=== PATIENT | female | born 1960 | race Caucasian/White ===

== ENCOUNTER 2020-01-31 20:00 | Emergency (ER) | payer OTHER ==
[~2020-01-31 20:00] MED LIST: IOVERSOL 320 100 ML VIAL IVP ONE
--- NOTE | 2020-01-31 20:37 | ED Physician Documentation ---
PD HPI ABD PAIN - Stated complaint Stated Complaint: ABD PX - Chief complaint Chief Complaint: Abd Pain - History obtained from History obtained from: Patient - History of Present Illness Timing - onset: Today (last 2 nights she has had mild right lower quadrant and pelvic pain. It comes and goes. Today it was much more severe early in the day. She followed up with her doctor and a pelvic exam was done. She was referred for CT but preauthorization did not come through. Pain is minimal now.) Review of Systems Ten Systems: 10 systems reviewed and negative Constitutional: denies: Fever, Chills Nose: denies: Rhinorrhea / runny nose, Congestion Throat: denies: Sore throat Cardiac: denies: Chest pain / pressure, Palpitations Respiratory: denies: Dyspnea, Cough GI: denies: Nausea, Vomiting, Diarrhea : denies: Dysuria PD PAST MEDICAL HISTORY - Allergies Allergies/Adverse Reactions: Allergies Allergy/AdvReac Type Severity Reaction Status Date / Time Phenothiazines Allergy Hallucinati Verified 01/31/20 20:10 ons PD ED PE NORMAL - Vitals Vital signs reviewed: Yes - General General: Alert and oriented X 3, No acute distress - HEENT HEENT: PERRL, EOMI - Neck Neck: Supple, no meningeal sign, No bony TTP - Cardiac Cardiac: RRR, No murmur - Respiratory Respiratory: No respiratory distress, Clear bilaterally - Abdomen Abdomen: Normal bowel sounds, Soft, Other (She is very mild diffuse right-sided abdominal tenderness, negative Correa sign, no guarding or rebound.) - Back Back: No CVA TTP, No spinal TTP - Derm Derm: Normal color, Warm and dry - Neuro Neuro: Alert and oriented X 3, Normal speech Results - Vitals Vitals: Vital Signs - 24 hr 01/31/20 20:10 Temperature 36.9 C Heart Rate 75 Respiratory 16 Rate Blood Pressure 91/51 L O2 Saturation 100 Oxygen O2 Source Room air - Labs Labs: Laboratory Tests 01/31/20 01/31/20 01/31/20 21:00 21:00 22:00 WBC 7.1 RBC 3.97 L Hgb 12.1 Hct 36.7 L MCV 92.4 MCH 30.5 MCHC 33.0 RDW 13.7 Plt Count 258 MPV 10.3 Neut # (Auto) 4.1 Lymph # (Auto) 2.2 [place] # (Auto) 0.6 Eos # (Auto) 0.2 Baso # (Auto) 0.1 Absolute Nucleated RBC 0.00 Nucleated RBC % 0.0 Sodium 135 Potassium 3.5 Chloride 102 Carbon Dioxide 25 Anion Gap 8.0 BUN 22 H Creatinine 0.9 Estimated GFR (MDRD) 64 L Glucose 116 H Calcium 9.0 Total Bilirubin 1.2 H AST 22 ALT 19 Alkaline Phosphatase 82 Total Protein 7.3 Albumin 4.3 Globulin 3.0 Albumin/Globulin Ratio 1.4 Lipase 31 Urine Color YELLOW Urine Clarity CLEAR Urine pH 6.0 Ur Specific [place] 1.015 Urine Protein NEGATIVE Urine Glucose (UA) NEGATIVE Urine Ketones NEGATIVE Urine Occult Blood NEGATIVE Urine Nitrite NEGATIVE Urine Bilirubin NEGATIVE Urine Urobilinogen 0.2 (NORMAL) Ur Leukocyte Esterase NEGATIVE Ur Microscopic Review NOT INDICATED Urine Culture Comments NOT INDICATED Urine HCG, Qual NEGATIVE PD MEDICAL DECISION MAKING - ED course ED course: 59-year-old woman presents with acute resolved abdominal pain. Minimal tenderness. CT showing only chronic and incidental findings. Nontender on reevaluation prior to discharge. Departure - Departure Disposition: 01 Home, Self Care Clinical Impression: Abdominal pain Qualifiers: Abdominal location: right lower quadrant Qualified Code(s): R10.31 - Right lower quadrant pain Condition: Good Record reviewed to determine appropriate education?: Yes Instructions: ED Abdominal Pain Unkn Cause Comments: Call your doctor to arrange a follow-up appointment, make the next available appointment. In the interim, return anytime if worse or if new symptoms develop.
[2020-01-31] MEDS ORDERED: IOVERSOL 320 100 ML VIAL IVP ONE ×2 (20:55→21:57)
[2020-01-31 21:08] LABS: BASOPHILS # (AUTO) 0.1 10^3/uL (0.0-0.1); BASOPHILS % (AUTO) 0.7 %; EOSINOPHILS # (AUTO) 0.2 10^3/uL (0.0-0.7); EOSINOPHILS % (AUTO) 3.1 %; HGB - HEMOGLOBIN 12.1 g/dL (12.0-16.0); LYMPHOCYTES # (AUTO) 2.2 10^3/uL (1.5-3.5); LYMPHOCYTES % (AUTO) 30.2 %; MEAN CORPUSCULAR HEMOGLOBIN 30.5 pg (27.0-31.0); MEAN CORPUSCULAR VOLUME 92.4 fL (81.0-99.0); MEAN PLATELET VOLUME 10.3 fL (7.9-10.8); MONOCYTES # (AUTO) 0.6 10^3/uL (0.0-1.0); MONOCYTES % (AUTO) 7.9 %; NEUTROPHILS # (AUTO) 4.1 10^3/uL (1.5-6.6); NEUTROPHILS % (AUTO) 57.8 %; PLT - PLATELET COUNT 258 10^3/uL (130-450); RED BLOOD COUNT 3.97 10^6/uL (4.20-5.40); RED CELL DISTRIBUTION WIDTH 13.7 % (12.0-15.0); WHITE BLOOD COUNT 7.1 x10^3/uL (4.8-10.8)
[2020-01-31 21:25] LABS: ALBUMIN 4.3 g/dL (3.2-5.5); ALBUMIN/GLOBULIN RATIO 1.4 (1.0-2.2); BILIRUBIN,TOTAL 1.2 mg/dL (0.2-1.0); CREATININE 0.9 mg/dL (0.4-1.0); TOTAL PROTEIN 7.3 g/dL (6.7-8.2)
[2020-01-31 22:16] LABS: BILIRUBIN,URINE NEGATIVE (NEGATIVE); GLUCOSE, URINE (UA) NEGATIVE (NEGATIVE); KETONES,URINE (UA) NEGATIVE (NEGATIVE); LEUKOCYTE ESTERASE, URINE NEGATIVE (NEGATIVE); NITRITE,URINE NEGATIVE (NEGATIVE); OCCULT BLOOD,URINE NEGATIVE (NEGATIVE); PROTEIN,URINE NEGATIVE (NEGATIVE); UROBILINOGEN,URINE 0.2 (NORMAL) E.U./dL (NORMAL)
[2020-01-31 22:19] LABS: CLARITY,URINE CLEAR (CLEAR); HCG UR QUAL NEGATIVE
--- NOTE | 2020-01-31 22:23 | CT Report ---
Reason: IV only, RLQ pain Procedure Date: 01/31/2020 Accession Number: [id number] / [id number] Procedure: CT - Abdomen/Pelvis W CPT Code: Final Report FULL RESULT: EXAM: CT ABDOMEN AND PELVIS EXAM DATE: 01/31/2020 09:59 PM. CLINICAL HISTORY: 3 day history of right lower quadrant abdominal pain COMPARISONS: None. TECHNIQUE: Routine helical CT imaging was performed through the abdomen and pelvis. IV contrast: 100 mL OPTIRAY 320. Enteric contrast: Yes. Reconstructions: Coronal and sagittal. In accordance with CT protocol optimization, one or more of the following dose reduction techniques were utilized for this exam: automated exposure control, adjustment of mA and/or KV based on patient size, or use of iterative reconstructive technique. FINDINGS: The lung bases are clear. The visible heart is normal in size. The liver and gallbladder are within normal limits. There is no biliary dilatation. A 1.1 x 1.2 cm subcapsular hypoattenuating lesion is seen at the upper pole of the spleen, which is too small to characterize, but may represent a small cyst or resolving hematoma. The pancreas and adrenal glands are within normal limits. A 2.1 x 1.9 cm hypodense lesion is seen in the lower pole of the left kidney, likely representing a cyst. An 8 mm hypodense lesion is seen in the lower pole of the right kidney, which is too small to characterize but likely represents a small cyst. The kidneys otherwise enhance symmetrically. There is no hydronephrosis. Scattered diverticula are seen in the sigmoid colon. The appendix is normal. There is no evidence of bowel obstruction, free intraperitoneal air, or ascites. No lymphadenopathy is seen. The abdominal aorta is normal in course and caliber. The bladder is normal. The uterus is within normal limits. The ovaries are not visible. There is no free pelvic fluid. There is a mild thoracolumbar dextrocurvature with compensatory lumbar levocurvature. Mild facet arthropathy and degenerative disk disease is seen in the lower lumbar spine. There are no suspicious lytic or blastic lesions. IMPRESSION: 1. No acute CT abnormalities to explain the patient's abdominal pain. 2. Sigmoid colon diverticulosis. 3. Subcapsular hypoattenuating lesion in the spleen may represent a small cyst or resolving hematoma if there is a history of trauma. RADIA
[2020-01-31 22:44] VITALS: BP 119/73
== END 2020-01-31 22:47 | disposition home or self-care (01) ==
LOC: ED 20:00
DX: R10.31 Right lower quadrant pain (principal)
CPT/HCPCS: 36415; 74177; 80053; 81003; 81025; 83690; 85025; 99283; 99284; Q9967; 81001; 87086

== ENCOUNTER 2020-02-04 16:49 | Outpatient (CLI) | payer OTHER ==
--- NOTE | 2020-02-06 10:09 | Ultrasound Report ---
Reason: PELVIC AND PERINEAL PAIN Procedure Date: 02/04/2020 Accession Number: [id number] / [id number] Procedure: US - Pelvic w/Transvaginal CPT Code: Final Report FULL RESULT: EXAM: PELVIC ULTRASOUND EXAM DATE: 02/04/2020 04:59 PM. CLINICAL HISTORY: Pelvic and perineal pain. COMPARISON: ABDOMEN/PELVIS W 01/31/2020 9:46 PM. TECHNIQUE: Realtime transabdominal pelvic scan performed to identify the uterus and adnexa and as an overview of other pelvic structures, followed by transvaginal scan to provide greater detail of the uterus and adnexa, with static image documentation. FINDINGS: Uterus: 6 x 3.5 x 3.2 cm, volume 35 cc. Anteverted position. Heterogeneous appearance, difficult to visualize. Masses: Suspected a shadowing anterior fibroid measuring approximately 1.6 x 1.9 x 1.6 cm, difficult to evaluate. Endometrium: 2 mm. Poorly visualized. Small calcifications may be present. Cervix: There are calcifications and nabothian cysts. Right Ovary: Poorly visualized. A hypoechoic structure believed to represent the ovary measures approximately 0.7 x 1 cm. Left Ovary: Not visualized, possibly obscured by bowel gas. Free Fluid: None. Other: None. IMPRESSION: 1. Technically limited study. If further imaging evaluation is desired, MRI might be considered. 2. Poorly visualized uterus possibly with a shadowing anterior fibroid. 3. Apparent calcifications and nabothian cysts in the cervix. 4. Poorly visualized right ovary. Nonvisualized left ovary. RADIA
== END 2020-02-04 16:50 | disposition home or self-care (01) ==
LOC: DI 16:49
PROVIDERS: ATTEND Internal Medicine
DX: N88.8 Other specified noninflammatory disorders of cervix uteri (principal)
CPT/HCPCS: 76830; 76856

== ENCOUNTER 2021-04-30 17:02 | Outpatient (CLI) | payer OTHER ==
[2021-04-30 17:20] LABS: BASOPHILS # (AUTO) 0.1 10^3/uL (0.0-0.1); BASOPHILS % (AUTO) 0.8 %; EOSINOPHILS # (AUTO) 0.2 10^3/uL (0.0-0.7); EOSINOPHILS % (AUTO) 2.4 %; HCT - HEMATOCRIT 40.1 % (37.0-47.0); HGB - HEMOGLOBIN 13.4 g/dL (12.0-16.0); LYMPHOCYTES # (AUTO) 2.3 10^3/uL (1.5-3.5); LYMPHOCYTES % (AUTO) 35.2 %; MEAN CORPUSCULAR HEMOGLOBIN 31.2 pg (27.0-31.0); MEAN CORPUSCULAR HGB CONC 33.4 g/dL (32.0-36.0); MEAN CORPUSCULAR VOLUME 93.5 fL (81.0-99.0); MEAN PLATELET VOLUME 10.2 fL (7.9-10.8); MONOCYTES # (AUTO) 0.4 10^3/uL (0.0-1.0); MONOCYTES % (AUTO) 6.4 %; NEUTROPHILS # (AUTO) 3.6 10^3/uL (1.5-6.6); NEUTROPHILS % (AUTO) 54.9 %; PLT - PLATELET COUNT 276 10^3/uL (130-450); RED BLOOD COUNT 4.29 10^6/uL (4.20-5.40); WHITE BLOOD COUNT 6.6 x10^3/uL (4.8-10.8)
[2021-04-30 17:31] LABS: ALBUMIN 4.6 g/dL (3.2-5.5); ALBUMIN/GLOBULIN RATIO 1.5 (1.0-2.2); BILIRUBIN,TOTAL 1.6 mg/dL (0.2-1.0); CALCIUM 9.4 mg/dL (8.5-10.3); CREATININE 0.9 mg/dL (0.4-1.0); POTASSIUM 3.9 mmol/L (3.5-5.0); TOTAL PROTEIN 7.7 g/dL (6.7-8.2)
== END 2021-04-30 17:03 | disposition home or self-care (01) ==
LOC: LAB 17:02
PROVIDERS: ATTEND Internal Medicine
DX: R10.9 Unspecified abdominal pain (principal); R10.2 Pelvic and perineal pain
CPT/HCPCS: 36415; 80053; 82150; 83690; 85025

== ENCOUNTER 2021-05-12 09:39 | Outpatient (CLI) | payer OTHER ==
[2021-05-12] MEDS ORDERED: IOPAMIDOL-300 100 ML VIAL ONE (09:54)
[2021-05-12] MEDS ORDERED: IOVERSOL 320 50 ML VIAL ONE (09:54)
[2021-05-12] MEDS ORDERED: IOVERSOL 320 50 ML VIAL PO ONE (11:55)
[2021-05-12] MEDS ORDERED: IOPAMIDOL-300 100 ML VIAL IVP ONE (11:55)
--- NOTE | 2021-05-12 11:58 | CT Report ---
PROCEDURE: Abdomen/Pelvis W INDICATIONS: LEFT UPPER QUAD ABD PAIN CONTRAST: IV CONTRAST: Isovue 300 ml: 100 PO CONTRAST: Optiray 320 ml50 TECHNIQUE: After the administration of IV and oral contrast, 5 mm thick sections acquired from the diaphragms to the symphysis. 5 mm thick coronal and sagittal reformats were acquired. For radiation dose reducti on, the following was used: automated exposure control, adjustment of mA and/or kV according to fredi ent size. COMPARISON: 01/31/2020 CT examination FINDINGS: Image quality: Excellent. ABDOMEN: Lung bases: Lung bases are clear. Heart size is normal. Solid organs: Liver and spleen are normal in size and enhancement. Gallbladder is grossly unremarka ble Biliary system is non dilated. Pancreas enhances normally. No adrenal nodules. Kidneys demons trate normal size and enhancement, without hydronephrosis. Peritoneum and bowel: Bowel loops demonstrate normal wall thickness and caliber. Normal appendix. No free fluid or air. Nodes and vessels: No retroperitoneal or mesenteric adenopathy by size criteria. Aorta and inferior vena cava are normal in size. Miscellaneous: No ventral hernias. PELVIS: Genitourinary: Bladder wall thickness is normal. Miscellaneous: No inguinal hernias or adenopathy. Bones: No suspicious bony lesions. No vertebral body compression fractures. IMPRESSION: 1. No acute process. No explanation for left upper quadrant pain. 2. Normal appendix. Reviewed by: Marie Beltran MD on 05/12/2021 10:57 AM JOSE ANGEL Approved by: Marie Beltran MD on 05/12/2021 10:57 AM JOSE ANGEL Station ID: [id number]
== END 2021-05-12 09:40 | disposition home or self-care (01) ==
LOC: DI 09:39
PROVIDERS: ATTEND Internal Medicine
DX: R10.12 Left upper quadrant pain (principal); Z79.899 Other long term (current) drug therapy
CPT/HCPCS: 74177; Q9967

== ENCOUNTER 2023-11-27 08:00 | Outpatient (CLI) | payer OTHER ==
[2023-11-27 20:18] LABS: BILIRUBIN,URINE SMALL (NEGATIVE); GLUCOSE, URINE (UA) NEGATIVE (NEGATIVE); KETONES,URINE (UA) 15 mg/dL (NEGATIVE); LEUKOCYTE ESTERASE, URINE NEGATIVE (NEGATIVE); NITRITE,URINE NEGATIVE (NEGATIVE); OCCULT BLOOD,URINE NEGATIVE (NEGATIVE); PROTEIN,URINE TRACE mg/dL (NEGATIVE); UROBILINOGEN,URINE 0.2 (NORMAL) E.U./dL (NORMAL)
[2023-11-27 21:27] LABS: BACTERIA,URINE Rare /HPF (None Seen); CLARITY,URINE TURBID (CLEAR); RBC,URINE 0-5 /HPF (0-5); SQUAMOUS EPITHELIAL CELL,UR RARE Squamous (<= Few); WBC,URINE 0-3 /HPF (0-5)
[2023-11-27 21:28] LABS: AMORPHOUS SEDIMENT,UR Marked /LPF
== END 2023-11-27 23:59 | disposition home or self-care (01) ==
LOC: LAB.S 08:00
PROVIDERS: ATTEND Emergency Medicine
DX: R11.2 Nausea with vomiting, unspecified (principal); R19.7 Diarrhea, unspecified
CPT/HCPCS: 81001; 87086